=== PATIENT | female | born 1995 | race Caucasian/White ===

== ENCOUNTER 2019-02-15 16:25 | Inpatient (IN) | payer BC ==
[2019-02-15 17:02] LABS: APPEARANCE,URINE CLEAR; BILIRUBIN,URINE NEGATIVE (NEGATIVE); COLOR,URINE STRAW; GLUCOSE, URINE NEGATIVE (NEGATIVE); KETONES,URINE NEGATIVE (NEGATIVE); LEUKOCYTE ESTERASE,URINE NEGATIVE (NEGATIVE); NITRITE,URINE NEGATIVE (NEGATIVE); PROTEIN,URINE NEGATIVE (NEGATIVE); URINE SPECIFIC GRAVITY 1.003; UROBILINOGEN,URINE NEGATIVE mg/dL (<2.0)
[2019-02-15 17:17] LABS: URINE AMPHETAMINES SCREEN NEGATIVE; URINE BARBITURATES SCREEN NEGATIVE; URINE BENZODIAZEPINES SCREEN NEGATIVE; URINE COCAINE SCREEN NEGATIVE; URINE MARIJUANA (THC) SCREEN NEGATIVE; URINE METHADONE SCREEN NEGATIVE; URINE PHENCYCLIDINE SCREEN NEGATIVE
[2019-02-15 17:21] LABS: UR PRO/CREAT RATIO RESULT 1.4 mg/mg (0.0-0.2); URINE CREATININE 23.9 mg/dL (16-327); URINE PROTEIN 33.8 mg/dL (<12)
[2019-02-15 17:25] LABS: ABSOLUTE EOSINOPHILS # (AUTO) 0.1 10^3/uL (0.0-0.6); ABSOLUTE LYMPHOCYTES (AUTO) 1.8 10^3/uL (0.5-4.7); BASOPHILS % (AUTO) 0.2 % (0-2); EOSINOPHILS % (AUTO) 0.6 % (0-6); HEMATOCRIT 33.7 % (36.0-47.0); HEMOGLOBIN 11.2 g/dL (12.0-15.5); LYMPHOCYTES % (AUTO) 16.7 % (13-45); MEAN CORPUSCULAR HEMOGLOBIN 28.4 pg (27.0-33.4); MEAN CORPUSCULAR HGB CONC 33.2 g/dL (32.0-36.0); MEAN CORPUSCULAR VOLUME 85 fl (80-97); MONOCYTES % (AUTO) 9.5 % (3-13); PLATELET COUNT 249 10^3/uL (150-450); RED BLOOD COUNT 3.95 10^6/uL (3.72-5.28); RED CELL DISTRIBUTION WIDTH 14.2 % (11.5-14.0); TOTAL CELLS COUNTED % (AUTO) 100 %; WHITE BLOOD COUNT 10.9 10^3/uL (4.0-10.5)
[2019-02-15 17:46] LABS: ALKALINE PHOSPHATASE 236 U/L (38-126); ANION GAP 8 (5-19); ASPARTATE AMINO TRANSFERASE 20 U/L (14-36); BILIRUBIN,DIRECT 0.1 mg/dL (0.0-0.4); BILIRUBIN,TOTAL 0.3 mg/dL (0.2-1.3); BLOOD UREA NITROGEN 8 mg/dL (7-20); CALCIUM 9.2 mg/dL (8.4-10.2); CARBON DIOXIDE 22 mmol/L (22-30); CHLORIDE 105 mmol/L (98-107); GLUCOSE 104 mg/dL (75-110); POTASSIUM 3.6 mmol/L (3.6-5.0); TOTAL PROTEIN 5.7 g/dL (6.3-8.2); URIC ACID 2.6 mg/dL (2.5-6.2)
[2019-02-15] MEDS ORDERED: RINGERS SOLUTION,LACTATED 300 ML IV ONE (21:30)
[2019-02-15] MEDS ORDERED: DINOPROSTONE 10 MG VAGINAL INSERT.SR PV PRN (21:30)
[2019-02-15] MEDS: RINGERS SOLUTION,LACTATED 1,000 ML IV PRN ×2 (21:43→22:48)
[2019-02-15] MEDS ORDERED: DINOPROSTONE 10 MG VAGINAL INSERT.SR ONE (22:41)
--- NOTE | 2019-02-16 02:09 | Admission Physical ---
Datetime Report Generated by CPN: 02/16/2019 02:09 CURRENT ADMISSION Chief Complaint: Other Indication for Induction: Eclampsia-Mild Admit Impression : Term, Intrauterine ; No Active Labor; Intact Membranes; Induction of Labor Admit Plan: Admit to Unit; Initiate Labor Induction Protocol ALLERGIES Medication Allergies: No Medication Allergies: No Known Allergies (02/15/2019) Latex: No Latex Allergies Food Allergies: none Environmental Allergies: none OBSTETRICAL HISTORY EDC: 03/04/2019 00:00 : 1 Para: 0 Term: 0 : 0 SAB: 0 IAB: 0 Livin Gestational Diabetes: No Rh Sensitization: No Incompetent Cervix: No KALPESH: No Infertility: No ART Treatment: No Uterine Anomaly: No IUGR: No Hx Previous C/S: No Macrosomia: No Hx Loss/Stillborn: No PIH: No Hx : No Placenta Previa/Abruption: No Depression/PP Depression: No PTL/PROM: No Post Hemorrhage: No Current Procedures: Ultrasound Obstetrical History Comments: G1 - Current SEE RECORDS Alcohol: No Marijuana : No Cocaine: No Other Illicit Drugs: No Cigarettes: Never Smoker. [id number] MEDICAL HISTORY Diabetes: No Blood Transfusion: No Pulmonary Disease (Asthma, TB): No Breast Disease: No Hypertension: No Picking Supervisor Surgery: No Heart Disease: No Hosp/Surgery: No Autoimmune Disorder: No Anesthetic Complications: No Kidney Disease: No Abnormal Pap Smear: No Neuro/Epilepsy: No Psychiatric Disorders: No Other Medical Diseases: No Hepatitis/Liver Disease: No Significant Family History: No Varicosities/Phlebitis: No Trauma/Violence : No Thyroid Dysfunction: No INFECTIOUS HISTORY Gonorrhea: No Genital Herpes: No Chlamydia: No Tuberculosis: No Syphilis: No Hepatitis: No HIV/AIDS Exposure: No Rash or Viral Illness: No HPV: No PHYSICAL EXAM General: Normal HEENT: Normal Neurologic: Normal Thyroid: Normal Heart: Normal Lungs: Normal Breast: Normal Back: Normal Abdomen: Normal Genitourinary Exam: Normal Extremities: Normal DTRs: Normal Pelvic Type: Adequate Vital Signs: Reviewed; Within Normal Limits VAGINAL EXAM Dilatation: 1 Effacement: 50% Station: -1 Contraction Comments: rare MEMBRANES Membranes: Intact FETUS A EGA: 37.5 Monitoring: External US FHR- Baseline: 120s Variability: Moderate 6-25bpm Accelerations: 15X15 Decelerations: None FHR Category: Category I Admit Comment: G1 presents to L_D for a PI work up secondary to elevated BP in the office. her labs were normal but her Prot/Cr ratio is 1.4. She had one elevated BP in at L_D. She is asymptomatic and is term. Pt undergo IOL for mild pre-eclampsia. PLANS FOR LABOR AND DELIVERY Labor and Delivery: None Feeding Preference: Breast Benefit of Breast Feed Discussed: Yes INFORMED CONSENT Signature: with User ID: [email or web address]
[2019-02-16] MEDS: RINGERS SOLUTION,LACTATED 1,000 ML IV PRN (09:28)
[2019-02-16] MEDS ORDERED: MISOPROSTOL 0.1 MG TABLET ONE ×2 (12:09→20:39)
[2019-02-16] MEDS ORDERED: MISOPROSTOL 0.1 MG TABLET PV ONE ×3 (12:15→20:38)
[2019-02-17] MEDS ORDERED: DINOPROSTONE 10 MG VAGINAL INSERT.SR PV ONE (00:50)
[2019-02-17] MEDS ORDERED: ZOLPIDEM TARTRATE 5 MG TABLET PO ONE (01:26)
[2019-02-17] MEDS ORDERED: ZOLPIDEM TARTRATE 5 MG TABLET ONE (01:28)
[2019-02-17 08:45] LABS: ABSOLUTE LYMPHOCYTES (AUTO) 1.5 10^3/uL (0.5-4.7); ABSOLUTE NEUT (AUTO) 11.3 10^3/uL (1.7-8.2); BASOPHILS % (AUTO) 0.1 % (0-2); EOSINOPHILS % (AUTO) 0.2 % (0-6); HEMATOCRIT 36.7 % (36.0-47.0); LYMPHOCYTES % (AUTO) 10.5 % (13-45); MEAN CORPUSCULAR HEMOGLOBIN 27.8 pg (27.0-33.4); MEAN CORPUSCULAR HGB CONC 32.7 g/dL (32.0-36.0); MEAN CORPUSCULAR VOLUME 85 fl (80-97); MONOCYTES % (AUTO) 7.3 % (3-13); PLATELET COUNT 277 10^3/uL (150-450); RED BLOOD COUNT 4.32 10^6/uL (3.72-5.28); RED CELL DISTRIBUTION WIDTH 14.1 % (11.5-14.0); SEGMENTED NEUTROPHILS % (AUTO) 81.9 % (42-78); TOTAL CELLS COUNTED % (AUTO) 100 %; WHITE BLOOD COUNT 13.8 10^3/uL (4.0-10.5)
[2019-02-17 09:02] LABS: ALBUMIN 3.2 g/dL (3.5-5.0); ALKALINE PHOSPHATASE 280 U/L (38-126); ANION GAP 7 (5-19); ASPARTATE AMINO TRANSFERASE 21 U/L (14-36); BILIRUBIN,DIRECT 0.1 mg/dL (0.0-0.4); BILIRUBIN,TOTAL 0.5 mg/dL (0.2-1.3); BLOOD UREA NITROGEN 4 mg/dL (7-20); CALCIUM 8.9 mg/dL (8.4-10.2); CARBON DIOXIDE 22 mmol/L (22-30); CHLORIDE 106 mmol/L (98-107); GLUCOSE 87 mg/dL (75-110); POTASSIUM 3.8 mmol/L (3.6-5.0); URIC ACID 2.3 mg/dL (2.5-6.2)
[2019-02-17] MEDS ORDERED: PENICILLIN G-K 5 MILLION UNIT VIAL ONE ×3 (09:58→17:59)
[2019-02-17] MEDS ORDERED: PENICILLIN G-K 5 MILLION UNIT VIAL IV ONE (10:00)
[2019-02-17] MEDS: RINGERS SOLUTION,LACTATED 1,000 ML IV PRN (10:13)
[2019-02-17] MEDS ORDERED: OXYTOCIN/NORMAL SALINE 20 UNIT/1,000 ML RTUINJ IV PRN ×2 (11:15→21:25)
[2019-02-17] MEDS ORDERED: EPHEDRINE SULFATE INJ 50 MG/1 ML AMPULE ONE (11:51)
[2019-02-17] MEDS ORDERED: OXYTOCIN 10 UNIT/ML VIAL ONE (11:51)
[2019-02-17] MEDS ORDERED: FENTANYL/BUPIVACAINE/NS/PF 300 MCG/150 ML RTUINJ EPI ONE (11:51)
[2019-02-17] MEDS ORDERED: MISOPROSTOL 0.2 MG TABLET ONE (11:51)
[2019-02-17] MEDS ORDERED: OXYTOCIN/NORMAL SALINE 20 UNIT/1,000 ML RTUINJ ONE (11:52)
[2019-02-17] MEDS ORDERED: BUPIVACAINE HCL 0.25 % INJ/PF (2.5 MG/1 ML) 30 ML VIAL ONE (11:52)
[2019-02-17] MEDS ORDERED: LIDOCAINE 1% INJ-PF (10 MG/ML) 30 ML SDV ONE (11:52)
[2019-02-17] MEDS: PENICILLIN G-K 5 MILLION UNIT VIAL IV SCH ×2 (14:08→18:03)
[2019-02-17] MEDS ORDERED: PSEUDOEPHEDRINE HCL 30 MG TABLET PO PRN (21:25)
[2019-02-17] MEDS ORDERED: NA PHOS,M-B/NA PHOS,DI-BA (ADULT) 133 ML ENEMA PR PRN (21:25)
[2019-02-17] MEDS ORDERED: PROMETHAZINE HCL 25 MG TABLET PO PRN (21:25)
[2019-02-17] MEDS ORDERED: MEASLES,MUMPS&RUBELLA VACC/PF 0.5 ML VIAL SUBCUT PRN (21:25)
[2019-02-17] MEDS ORDERED: PROMETHAZINE HCL 25 MG SUPP.RECT PR PRN (21:25)
[2019-02-17] MEDS ORDERED: DIPHENHYDRAMINE HCL 25 MG CAPSULE PO PRN (21:25)
[2019-02-17] MEDS ORDERED: DIBUCAINE 1% OINTMENT 56 GM TP PRN (21:25)
[2019-02-17] MEDS ORDERED: ZOLPIDEM TARTRATE 5 MG TABLET PO PRN (21:25)
[2019-02-17] MEDS ORDERED: GLYCERIN/WITCH HAZEL LEAF 1 EACH MED..WIPE TP PRN (21:25)
[2019-02-17] MEDS ORDERED: ACETAMINOPHEN 650 MG SUPP.RECT PR PRN (21:25)
[2019-02-17] MEDS ORDERED: DIPH/PERTUSS(ACELL)/TETANUS VAC/PF 0.5 ML SYR (>=10YO) IM PRN (21:25)
[2019-02-17] MEDS ORDERED: PROMETHAZINE HCL INJ 25 MG/1 ML VIAL IV PRN (21:25)
[2019-02-17] MEDS ORDERED: BENZOCAINE/MENTHOL AEROSOL SPRAY 56 ML TOP PRN (21:25)
[2019-02-17] MEDS ORDERED: MAGNESIUM HYDROXIDE SUSP 30 ML UDCUP PO PRN (21:25)
[2019-02-17] MEDS ORDERED: ACETAMINOPHEN WITH CODEINE #3 TABLET PO PRN (21:25)
[2019-02-18] MEDS: FAMOTIDINE 20 MG TABLET PO SCH ×3 (03:35→22:29)
[2019-02-18] MEDS: PENICILLIN G-K 5 MILLION UNIT VIAL IV SCH ×4 (03:35→13:03)
[2019-02-18] MEDS: IBUPROFEN 800 MG TABLET PO SCH ×4 (03:35→22:29)
[2019-02-18 06:13] LABS: HEMATOCRIT 31.7 % (36.0-47.0); HEMOGLOBIN 10.5 g/dL (12.0-15.5); MEAN CORPUSCULAR HEMOGLOBIN 28.2 pg (27.0-33.4); MEAN CORPUSCULAR HGB CONC 33.2 g/dL (32.0-36.0); MEAN CORPUSCULAR VOLUME 85 fl (80-97); PLATELET COUNT 256 10^3/uL (150-450); RED BLOOD COUNT 3.73 10^6/uL (3.72-5.28); RED CELL DISTRIBUTION WIDTH 14.7 % (11.5-14.0); WHITE BLOOD COUNT 16.1 10^3/uL (4.0-10.5)
[2019-02-18] MEDS: FERROUS SULFATE 325 MG TABLET PO SCH ×2 (09:24→17:50)
[2019-02-18] MEDS: PRENATAL VITAMIN W DHA CAPSULE PO SCH (09:24)
[2019-02-18] MEDS: DOCUSATE SODIUM 100 MG CAPSULE PO SCH ×2 (09:24→17:50)
[2019-02-18] MEDS: SENNOSIDES/DOCUSATE 8.6-50 MG 1 EACH TABLET PO SCH (09:24)
--- NOTE | 2019-02-18 10:39 | PDOC PROGRESS REPORT ---
Subjective-OB Progress Note for:: 02/18/19 Subjective: Pt doing well, no concerns. She reports light bleeding, reg diet and voiding without difficulty. Physical Exam (OB) Vital Signs: Temp Pulse Resp BP Pulse Ox 97.7 F 91 16 122/64 98 02/18/19 07:27 02/18/19 07:27 02/18/19 07:27 02/18/19 07:27 02/18/19 07:27 Intake & Output 02/17/19 02/18/19 02/19/19 06:59 06:59 06:59 Intake Total 1000 400 Balance 1000 400 - Lochia Lochia Amount: Small 10-25 ml Lochia Color: Rubra/Red - Abdomen Description: Soft Hernia Present: No Fundal Description: Firm, Midline Fundal Height: u/u - u/2 Objective-Diagnostic Laboratory: 02/18/19 05:57 02/17/19 08:29 02/18/19 05:57 WBC 16.1 H RBC 3.73 Hgb 10.5 L Hct 31.7 L MCV 85 MCH 28.2 MCHC 33.2 RDW 14.7 H Plt Count 256 Assessment and Plan(PN) - Assessment and Plan (1) Pre-eclampsia in third trimester Is this a current diagnosis for this admission?: Yes (2) Vaginal delivery Is this a current diagnosis for this admission?: Yes - Time Spent with Patient Time with patient: Less than 15 minutes Medications reviewed and adjusted accordingly: Yes - Disposition Anticipated Discharge: Home Within: within 24 hours
[2019-02-19] MEDS: IBUPROFEN 800 MG TABLET PO SCH ×2 (06:33→13:59)
[2019-02-19] MEDS: DOCUSATE SODIUM 100 MG CAPSULE PO SCH (09:54)
[2019-02-19] MEDS: SENNOSIDES/DOCUSATE 8.6-50 MG 1 EACH TABLET PO SCH (09:55)
[2019-02-19] MEDS: FAMOTIDINE 20 MG TABLET PO SCH (09:55)
[2019-02-19] MEDS: FERROUS SULFATE 325 MG TABLET PO SCH (09:55)
[2019-02-19] MEDS: PRENATAL VITAMIN W DHA CAPSULE PO SCH (09:55)
--- NOTE | 2019-02-19 11:38 | PDOC DISCHARGE SUMMARY ---
Impression - Admit/DC Date/PCP Admission Date/Primary Care Provider: 02/15/19 21:32 Discharge Date: 02/19/19 - Discharge Diagnosis (1) Pre-eclampsia in third trimester Is this a current diagnosis for this admission?: Yes (2) Vaginal delivery Is this a current diagnosis for this admission?: Yes - Additional Information Resuscitation Status: Full Code Discharge Diet: Regular Discharge Activity: Balance Activity w/Rest, Pelvic Rest Prescriptions: Ibuprofen [Motrin 800 mg Tablet] 800 mg PO Q8HP PRN #60 tablet PRN Reason: Home Medications: Pnv No.95/Ferrous Fum/Folic AC [ Caplet] 1 each PO DAILY 02/15/19 Ibuprofen [Motrin 800 mg Tablet] 800 mg PO Q8HP PRN #60 tablet 02/19/19 Results Laboratory Results: WBC 16.1 10^3/uL (4.0-10.5) H 02/18/19 05:57 RBC 3.73 10^6/uL (3.72-5.28) 02/18/19 05:57 Hgb 10.5 g/dL (12.0-15.5) L 02/18/19 05:57 Hct 31.7 % (36.0-47.0) L 02/18/19 05:57 MCV 85 fl (80-97) 02/18/19 05:57 MCH 28.2 pg (27.0-33.4) 02/18/19 05:57 MCHC 33.2 g/dL (32.0-36.0) 02/18/19 05:57 RDW 14.7 % (11.5-14.0) H 02/18/19 05:57 Plt Count 256 10^3/uL (150-450) 02/18/19 05:57 Lymph % (Auto) 10.5 % (13-45) L 02/17/19 08:29 [place] % (Auto) 7.3 % (3-13) 02/17/19 08:29 Eos % (Auto) 0.2 % (0-6) 02/17/19 08:29 Baso % (Auto) 0.1 % (0-2) 02/17/19 08:29 Absolute Neuts (auto) 11.3 10^3/uL (1.7-8.2) H 02/17/19 08:29 Absolute Lymphs (auto) 1.5 10^3/uL (0.5-4.7) 02/17/19 08:29 Absolute Monos (auto) 1.0 10^3/uL (0.1-1.4) 02/17/19 08:29 Absolute Eos (auto) 0.0 10^3/uL (0.0-0.6) 02/17/19 08:29 Absolute Basos (auto) 0.0 10^3/uL (0.0-0.2) 02/17/19 08:29 Seg Neutrophils % 81.9 % (42-78) H 02/17/19 08:29 Sodium 135.1 mmol/L (137-145) L 02/17/19 08:29 Potassium 3.8 mmol/L (3.6-5.0) 02/17/19 08:29 Chloride 106 mmol/L (98-107) 02/17/19 08:29 Carbon Dioxide 22 mmol/L (22-30) 02/17/19 08:29 Anion Gap 7 (5-19) 02/17/19 08:29 BUN 4 mg/dL (7-20) L 02/17/19 08:29 Creatinine 0.44 mg/dL (0.52-1.25) L 02/17/19 08:29 Est GFR ( Amer) > 60 (>60) 02/17/19 08:29 Est GFR (MDRD) Non-Af > 60 (>60) 02/17/19 08:29 Glucose 87 mg/dL (75-110) 02/17/19 08:29 Uric Acid 2.3 mg/dL (2.5-6.2) L 02/17/19 08:29 Calcium 8.9 mg/dL (8.4-10.2) 02/17/19 08:29 Total Bilirubin 0.5 mg/dL (0.2-1.3) 02/17/19 08:29 Direct Bilirubin 0.1 mg/dL (0.0-0.4) 02/17/19 08:29 Neonat Total Bilirubin Not Reportable 02/17/19 08:29 Neonat Direct Bilirubin Not Reportable 02/17/19 08:29 Neonat Indirect Bili Not Reportable 02/17/19 08:29 AST 21 U/L (14-36) 02/17/19 08:29 ALT 18 U/L (<35) 02/17/19 08:29 Alkaline Phosphatase 280 U/L (38-126) H 02/17/19 08:29 Lactate Dehydrogenase 187 U/L (120-246) 02/17/19 08:29 Total Protein 6.0 g/dL (6.3-8.2) L 02/17/19 08:29 Albumin 3.2 g/dL (3.5-5.0) L 02/17/19 08:29 Urine Color STRAW 02/15/19 16:30 Urine Appearance CLEAR 02/15/19 16:30 Urine pH 7.0 (5.0-9.0) 02/15/19 16:30 Ur Specific [place] 1.003 02/15/19 16:30 Urine Protein NEGATIVE mg/dL (NEGATIVE) 02/15/19 16:30 Urine Glucose (UA) NEGATIVE mg/dL (NEGATIVE) 02/15/19 16:30 Urine Ketones NEGATIVE mg/dL (NEGATIVE) 02/15/19 16:30 Urine Blood SMALL (NEGATIVE) H 02/15/19 16:30 Urine Nitrite NEGATIVE (NEGATIVE) 02/15/19 16:30 Urine Bilirubin NEGATIVE (NEGATIVE) 02/15/19 16:30 Urine Urobilinogen NEGATIVE mg/dL (<2.0) 02/15/19 16:30 Ur Leukocyte Esterase NEGATIVE (NEGATIVE) 02/15/19 16:30 Urine WBC (Auto) 1 /HPF 02/15/19 16:30 Urine RBC (Auto) 0 /HPF 02/15/19 16:30 Urine Creatinine 23.9 mg/dL (16-327) 02/15/19 16:30 Protein/Creatinin Ratio 1.4 mg/mg (0.0-0.2) H 02/15/19 16:30 Urine Total Protein 33.8 mg/dL (<12) H 02/15/19 16:30 Urine Ascorbic Acid NEGATIVE (NEGATIVE) 02/15/19 16:30 Urine Opiates Screen NEGATIVE 02/15/19 16:30 Urine Methadone Screen NEGATIVE 02/15/19 16:30 Ur Barbiturates Screen NEGATIVE 02/15/19 16:30 Ur Phencyclidine Scrn NEGATIVE 02/15/19 16:30 Ur Amphetamines Screen NEGATIVE 02/15/19 16:30 U Benzodiazepines Scrn NEGATIVE 02/15/19 16:30 Urine Cocaine Screen NEGATIVE 02/15/19 16:30 U Marijuana (THC) Screen NEGATIVE 02/15/19 16:30 RPR NONREACTIVE (NONREACTIVE) 02/15/19 21:55 Blood Type A POSITIVE 02/15/19 21:55 Antibody Screen NEGATIVE 02/15/19 21:55
[2019-02-19 13:12] VITALS: BP 123/74
--- NOTE | 2019-02-22 15:11 | Delivery Summary ---
Del Sum A-C Datetime Report Generated by CPN: 02/22/2019 15:10 DELIVERY PERSONNEL DELIVERY PERSONNEL: [id number] Delivery Doctor:: Reyes Packer MD Labor and Delivery Nurse:: Qian Gomez [employer] Relations Director/ORTHOPEDIC TECH: A Dariel ST MATERNAL INFORMATION Delivery Anesthesia: Epidural Medications After Delivery: Pitocin Bolus-Please Comment Meds After Delivery Comment: pitocin 20 units in 1 L NS bolusing per MD orders Estimated Blood Loss (ml): 300 Delivery QBL: 185 Maternal Complications: None LABOR SUMMARY EDC: 03/04/2019 00:00 No. Babies in Womb: 1 Attempted: No Labor Anesthesia: Epidural LABOR INFORMATION Reason for Induction: Pre-Eclampsia Onset of Labor: 02/17/2019 11:00 Complete Dilatation: 02/17/2019 20:38 Cervical Ripening Agents: Cervidil Cervical Ripening Agents: Cytotec @ 25 mcg PV Cervical Ripening Agents: Cytotec @ 25mcg Cervical Ripening Agents: Cytotec @ 25 mcg Cervical Ripening Agents: Cervidil (Annotations: Removed at this time.) Cervical Ripening Agents: Cervidil Oxytocin: Induction Group B Beta Strep: POSITIVE Antibiotics # of Doses: 3 Antibiotics Time of Last Dose: 1802 Name of Antibiotic Given: PCN Steroids Given: None Reason Steroids Not Administered: Not Applicable MEMBRANES Membranes Rupture Method: Spontaneous Rupture of Membranes: 02/17/2019 10:00 Length of Rupture (hr): 11.17 Amniotic Fluid Color: Clear Amniotic Fluid Amount: Scant Amniotic Fluid Odor: Normal STAGES OF LABOR Stage 1 hr: 9 Stage 1 min: 38 Stage 2 hr: 0 Stage 2 min: 32 Stage 3 hr: 0 Stage 3 min: 5 Total Time in Labor hr: 10 Total Time in Labor min: 15 VAGINAL DELIVERY Episiotomy: None Laceration #1: Perineal Laceration Extension #1: First Degree Laceration Repair: Yes Laceration Repair Note: repaired with 2-0 vicryl Sponge Count Correct: Yes Sharps Count Correct: Yes BABY A INFORMATION Infant Delivery Date/Time: 02/17/2019 21:10 Method of Delivery: Vaginal Born in Route : No : N/A Forceps: N/A Vacuum Extraction: N/A Shoulder Dystocia : No PRESENTATION/POSITION BABY A Presentation: Cephalic Presentation: Cephalic Cephalic Presentation: Vertex Vertex Position: Left Occipital Anterior Breech Presentation: N/A PLACENTA INFORMATION BABY A Placenta Delivery Time : 02/17/2019 21:15 Placenta Method of Delivery: Spontaneous Placenta Status: Delivered SCORES BABY A Heart Rate 1 min: >100 bpm Resp Effort 1 min: Good Cry Reflex Irritability 1 min: Cough or Sneeze or Pulls Away Muscle Tone 1 min: Active Motion Color 1 min: Body [place], Extremities Blue Resuscitation Effort 1 min: Tactile Stimulation SCORE 1 MIN: 9 Heart Rate 5 min: >100 bpm Resp Effort 5 min: Good Cry Reflex Irritability 5 min: Cough or Sneeze or Pulls Away Muscle Tone 5 min: Active Motion Color 5 min: Body [place], Extremities Blue Resuscitation Effort 5 min: Tactile Stimulation SCORE 5 MIN: 9 INFANT INFORMATION BABY A Gestational Age at Delivery: 37.6 Gestational Status: Early Term- 37- 38.6 Weeks Infant Outcome : Liveborn Condition : Stable Infant Sex: Female IDENTIFICATION BABY A Infant Verification Date/Time: 02/17/2019 21:26 ID Band Number: [id number] RN Verifying Infant: ashley Additional Verifying Personnel: Mackenzie jason WEIGHT/LENGTH BABY A Birthweight (gm): 3250 Weight (lb): 7 Infant Weight (oz): 3 Infant Length (in): 19.25 Length (cm): 48.90 CORD INFORMATION BABY A No. Cord Vessels: 3 Nuchal Cord : Around Neck x1, Loose Cord Blood Taken: Yes-For Storage (Mom's Blood type +) Infant Suction: None ASSESSMENT BABY A Complications: None Physical Findings at Delivery: Within Normal Limits Infant Respirations: Appears Normal Skin to Skin: Yes Skin to Skin Time (min): 30 Reserves Clerk/ALS Called : No Infant Care By: D Jason RN Transferred To: Remains with Mother BABY B INFORMATION : N/A SIGNATURES Signature: with User ID: [email or web address]
== END 2019-02-19 16:38 | disposition home or self-care (01) | DRG 807 ==
LOC: LC 16:25 → LR 21:32 → 2S 02-17 23:54
PROVIDERS: ADMIT Obstetrics & Gynecology; ATTEND Obstetrics & Gynecology Gynecology
PROC: 10E0XZZ Delivery of Products of Conception, External Approach (ICD-10-PCS; principal; 2019-02-17)
PROC: 0HQ9XZZ Repair Perineum Skin, External Approach (ICD-10-PCS; 2019-02-17)
PROC: 3E0234Z Introduction of Serum, Toxoid and Vaccine into Muscle, Percutaneous Approach (ICD-10-PCS; 2019-02-19)
DX: O14.04 Mild to moderate pre-eclampsia, complicating childbirth (principal); Z37.0 Single live birth; O70.0 First degree perineal laceration during delivery; Z3A.37 37 weeks gestation of pregnancy; O69.81X0 Labor and delivery complicated by cord around neck, without compression, not applicable or unspecified; Z23 Encounter for immunization
CPT/HCPCS: 36415; 80053; 80307; 81001; 82570; 83615; 84156; 84550; 85025; 85027; 86592; 86850; 86900; 86901; 90707; J2540; J2590; J3010; J3490